=== PATIENT | male | born 1995 | race Caucasian/White ===

== ENCOUNTER 2025-01-02 22:17 | Emergency (ER) | payer OTHER ==
[~2025-01-02] VITALS: Ht 182.9 cm; Wt 90.2 kg
[2025-01-02] MEDS ORDERED: KETOROLAC TROMETHAMINE 60 MG/2 ML VIAL IM ONE (22:30)
[2025-01-02] MEDS ORDERED: diazePAM 10 MG/2 ML SYR IM ONE (22:45)
[2025-01-02] MEDS ORDERED: CELEBREX200 MG PO (23:28)
[2025-01-02] MEDS ORDERED: CYCLOBENZAPRINE10 MG PO (23:28)
[2025-01-02] MEDS ORDERED: HYDROCODONE BIT/ACETAMINOPHEN 5/325 MG 1 TAB HOME.PACK PO ONE (23:30)
[2025-01-02 23:55] VITALS: BP 155/98
== END 2025-01-02 23:57 | disposition home or self-care (01) ==
LOC: ED 22:17
DX: S83.91XA Sprain of unspecified site of right knee, initial encounter (principal); Y04.8XXA Assault by other bodily force, initial encounter
CPT/HCPCS: 73700; 96372; 99283-25; A9270; J1885

== ENCOUNTER 2025-05-29 07:31 | Emergency (ER) | payer OTHER ==
[~2025-05-29] VITALS: Ht 185.4 cm; Wt 90.0 kg
[~2025-05-29 07:31] MED LIST: CELEBREX200 MG PO; CYCLOBENZAPRINE10 MG PO
[2025-05-29 09:23] VITALS: BP 132/96
== END 2025-05-29 09:23 | disposition home or self-care (01) ==
LOC: ED 07:31
DX: S66.306A Unspecified injury of extensor muscle, fascia and tendon of right little finger at wrist and hand level, initial encounter (principal); W22.8XXA Striking against or struck by other objects, initial encounter; Z91.018 Allergy to other foods
CPT/HCPCS: 73130; 99283

== ENCOUNTER 2025-06-30 03:57 | Emergency (ER) | payer OTHER ==
[~2025-06-30] VITALS: Ht 185.4 cm; Wt 90.0 kg
[2025-06-30] MEDS ORDERED: ALBUTEROL/IPRATROPIUM 3 ML NEB INH ONE (04:15)
[2025-06-30] MEDS ORDERED: LORazepam 2 MG/ML VIAL IV ONE ×2 (04:15)
[2025-06-30] MEDS ORDERED: METOPROLOL TARTRATE 5 MG/5 ML VIAL IV ONE (04:15)
[2025-06-30 09:06] VITALS: BP 119/70
--- NOTE | 2025-06-30 14:36 | EKG ---
[facility] [address] [place], [place] [address] Signed Sinus tachycardia Otherwise normal ECG No previous ECGs available Confirmed by GABRIEL SMALLS MD ([id number]) on 06/30/2025 2:36:02 PM Electronically Signed By: GABRIEL SMALLS 06/30/25 1436 PATIENT NAME: CHAITANYA BARNHART THANH Electrocardiogram DATE OF : [birth year] PHYSICIAN: GABRIEL SMALLS REPORT #: [id number] REPORT IS CONFIDENTIAL AND NOT TO BE RELEASED WITHOUT AUTHORIZATION
== END 2025-06-30 09:06 | disposition home or self-care (01) ==
LOC: ED 03:57
DX: J98.2 Interstitial emphysema (principal); F14.10 Cocaine abuse, uncomplicated; F17.290 Nicotine dependence, other tobacco product, uncomplicated; F17.210 Nicotine dependence, cigarettes, uncomplicated; Z91.018 Allergy to other foods
CPT/HCPCS: 71045; 93005; 93010; 94640; 96374; 99285-25; J2060